=== PATIENT | female | born 1985 | race African-American/Black ===

== ENCOUNTER 2019-03-03 17:06 | Emergency (ER) | payer MEDICAID ==
[~2019-03-03] VITALS: Ht 165.1 cm; Wt 72.0 kg
[2019-03-03] MEDS ORDERED: IBUPROFEN 600MG TABLET PO STA (19:47)
[2019-03-03 20:28] VITALS: BP 136/76
== END 2019-03-03 20:35 | disposition home or self-care (01) ==
LOC: ER 17:06
DX: M25.571 Pain in right ankle and joints of right foot (principal); M54.5 Low back pain; F41.9 Anxiety disorder, unspecified; J45.909 Unspecified asthma, uncomplicated; K21.9 Gastro-esophageal reflux disease without esophagitis; Z87.09 Personal history of other diseases of the respiratory system; Z87.440 Personal history of urinary (tract) infections; Z88.0 Allergy status to penicillin; V09.9XXA Pedestrian injured in unspecified transport accident, initial encounter; Y93.89 Activity, other specified; Y92.89 Other specified places as the place of occurrence of the external cause; Y99.8 Other external cause status
CPT/HCPCS: 72100; 73610; 81025; 99283

== ENCOUNTER 2022-09-01 20:44 | Observation (INO) | payer MEDICAID ==
[~2022-09-01] VITALS: Ht 165.1 cm; Wt 122.5 kg
[2022-09-01] MEDS ORDERED: LACTATED RINGERS 1,000 ML IV SCH ×2 (21:00→21:15)
[2022-09-01] MEDS ORDERED: PNV1TABL76 PO (21:08)
[2022-09-01] MEDS ORDERED: ALBUL GT (21:08)
[2022-09-01 21:20] LABS: CLARITY URINE CLEAR (CLEAR); COLOR URINE DARK YELLOW (YELLOW); KETONES URINE TRACE (NEGATIVE); LEUKOCYTE ESTERASE URINE NEGATIVE (NEGATIVE); NITRITE URINE NEGATIVE (NEGATIVE); OCCULT BLOOD URINE NEGATIVE (NEGATIVE); PROTEIN URINE TRACE (NEGATIVE); SPECIFIC GRAVITY URINE 1.018 (1.005-1.030)
[2022-09-01] MEDS ORDERED: GUAIFENESIN-DM 200MG-20MG/10ML UDC PO NR (22:30)
[2022-09-01] MEDS ORDERED: CEFAZOLIN 2,000 MG in DEXT 5% WATER 100 ML IV NR (22:30)
[2022-09-01] MEDS ORDERED: DIPHENHYDRAMINE 50MG/ML VIAL IV NR (22:30)
[2022-09-01] MEDS ORDERED: TERBUTALINE SULFATE 1MG/ML VIAL SUBCUT NR (23:12)
[2022-09-02] MEDS ORDERED: ONDANSETRON HCL 4MG/2ML INJ IM NR (01:00)
[2022-09-02] MEDS ORDERED: ONDANSETRON HCL 4MG/2ML INJ IV PRN (05:45)
== END 2022-09-02 11:45 | disposition home or self-care (01) ==
LOC: 8 EST LDRP 20:44
PROVIDERS: ADMIT Obstetrics & Gynecology; ATTEND Obstetrics & Gynecology
DX: O62.9 Abnormality of forces of labor, unspecified (principal); Z20.822 Contact with and (suspected) exposure to COVID-19; Z3A.36 36 weeks gestation of pregnancy
CPT/HCPCS: 59025; 76805; 76818; 81003; 87426; 96361; 96365; 96372; G0378; J0690; J2405; J3105; J7060; J7120; 96360; 99281; J1200; G0379

== ENCOUNTER 2023-07-06 16:15 | Emergency (ER) | payer MEDICAID ==
[~2023-07-06] VITALS: Ht 167.6 cm; Wt 75.0 kg
[~2023-07-06 16:15] MED LIST: ACET-2708 MT; ALBU2SYR23 GT; PNV1TABL76 PO
[2023-07-06 16:25] VITALS: BP 146/72; PULSE 78; RESP 16; TEMP 98.4; O2SAT 98
[2023-07-06 22:51] LABS: BASOPHILS % 0.4 % (0.0-2.0); HEMATOCRIT. 37.8 % (36.0-48.0); HEMOGLOBIN. 12.9 g/dL (12.0-16.0); LYMPHOCYTES % 28.3 % (20.0-50.0); MEAN CORPUSCULAR HGB CONC 34.2 g/dL (31.0-37.0); MEAN CORPUSCULAR VOLUME 84.8 fL (81.0-99.0); MONOCYTES % 4.3 % (2.0-8.0); PLATELET 222 x1000/uL (130-400); RED BLOOD CELL COUNT 4.46 mill/uL (4.2-5.4); RED CELL DISTRIBUTION WIDTH 13.9 % (11.6-14.6); WHITE BLOOD COUNT 8.8 x1000/uL (4.5-11.0)
[2023-07-06 22:59] LABS: CALCIUM 9.2 mg/dL (8.5-10.1); CHLORIDE 107 mEq/L (98-107); INDEX HEMOLYSI 1 (1-3); INDEX ICTERIC 1 (1-4); INDEX LIPEMIC 1 (1-3); POTASSIUM 3.5 mEq/L (3.5-5.1); SODIUM 140 mEq/L (136-145)
[2023-07-06 23:06] LABS: ALANINE AMINOTRANSFERASE 38 IU/L (13-61); ALBUMIN 3.9 g/dL (3.4-5.0); ASPARTATE AMINOTRANSFERASE 22 IU/L (15-37); BILIRUBIN TOTAL 0.6 mg/dL (0.1-1.0); CARBON DIOXIDE 29 mEq/L (21-32); CREATININE 0.7 mg/dL (0.6-1.3); GLUCOSE 83 mg/dL (70-105); PROTEIN TOTAL 8.8 g/dL (6.0-8.3); UREA NITROGEN BLOOD 11 mg/dL (7-21)
[2023-07-06 23:22] LABS: HCG SCREEN NEGATIVE
[2023-07-06] MEDS ORDERED: MAGNESIUM/ALUMINUM HYDROXIDE/SIMETHICONE 30ML UDC PO ONE (23:45)
[2023-07-06] MEDS ORDERED: FAMO-135 MT (23:53)
[2023-07-06] MEDS ORDERED: GUAI-741 MT (23:53)
[2023-07-07] MEDS ORDERED: MAGNESIUM/ALUMINUM HYDROXIDE/SIMETHICONE 30ML UDC PO NR (00:15)
== END 2023-07-07 04:21 | disposition home or self-care (01) ==
LOC: ER 16:15
DX: J06.9 Acute upper respiratory infection, unspecified (principal); R10.13 Epigastric pain; F41.9 Anxiety disorder, unspecified; J45.909 Unspecified asthma, uncomplicated; D57.1 Sickle-cell disease without crisis; Z88.0 Allergy status to penicillin; Z91.040 Latex allergy status; Z91.018 Allergy to other foods
CPT/HCPCS: 36415; 71045; 80053; 84703; 85025; 99284

== ENCOUNTER 2023-11-28 13:58 | Emergency (ER) | payer MEDICAID ==
[~2023-11-28] VITALS: Ht 167.6 cm; Wt 74.0 kg
[~2023-11-28 13:58] MED LIST changes: +FAMO-135 MT; +GUAI-741 MT
[2023-11-28 14:08] VITALS: O2SAT 98
[2023-11-28 15:17] LABS: BASOPHILS % 0.3 % (0.0-2.0); HEMATOCRIT. 35.2 % (36.0-48.0); HEMOGLOBIN. 11.9 g/dL (12.0-16.0); LYMPHOCYTES % 26.4 % (20.0-50.0); MEAN CORPUSCULAR HGB CONC 33.7 g/dL (31.0-37.0); MEAN CORPUSCULAR VOLUME 85.9 fL (81.0-99.0); MEAN PLATELET VOLUME 10.1 fl (7.4-10.4); MONOCYTES % 5.2 % (2.0-8.0); NEUTROPHILS % 67.1 % (40.0-76.0); PLATELET 194 x1000/uL (130-400); RED BLOOD CELL COUNT 4.09 mill/uL (4.2-5.4); RED CELL DISTRIBUTION WIDTH 13.2 % (11.6-14.6); WHITE BLOOD COUNT 8.4 x1000/uL (4.5-11.0)
[2023-11-28 15:27] LABS: HCG SCREEN NEGATIVE
[2023-11-28 15:29] LABS: ALANINE AMINOTRANSFERASE 52 IU/L (10-49); ALBUMIN 4.4 g/dL (3.2-4.8); ASPARTATE AMINOTRANSFERASE 36 IU/L (<34); BILIRUBIN TOTAL 0.7 mg/dL (0.1-1.0); CALCIUM 9.1 mg/dL (8.7-10.4); CARBON DIOXIDE 28 mEq/L (21-32); CHLORIDE 106 mEq/L (98-107); CREATININE 0.6 mg/dL (0.6-1.0); GLUCOSE 79 mg/dL (70-105); POTASSIUM 3.9 mEq/L (3.5-5.1); PROTEIN TOTAL 7.9 g/dL (6.0-8.3); SODIUM 139 mEq/L (136-145); UREA NITROGEN BLOOD 11 mg/dL (9-23)
[2023-11-28 16:11] LABS: CLARITY URINE CLEAR (CLEAR); COLOR URINE YELLOW (YELLOW); GLUCOSE URINE NEGATIVE (NEGATIVE); KETONES URINE NEGATIVE (NEGATIVE); LEUKOCYTE ESTERASE URINE NEGATIVE (NEGATIVE); NITRITE URINE NEGATIVE (NEGATIVE); OCCULT BLOOD URINE NEGATIVE (NEGATIVE); PROTEIN URINE NEGATIVE (NEGATIVE)
[2023-11-28] MEDS: METOCLOPRAMIDE HCL 10MG/2ML VIAL IM ONE (17:31)
[2023-11-28 17:42] VITALS: BP 152/69; PULSE 89; RESP 18; TEMP 98.1
== END 2023-11-28 17:43 | disposition home or self-care (01) ==
LOC: ER 13:58
DX: R10.30 Lower abdominal pain, unspecified (principal); R11.2 Nausea with vomiting, unspecified; J45.909 Unspecified asthma, uncomplicated; Z88.0 Allergy status to penicillin; Z91.018 Allergy to other foods; Z91.040 Latex allergy status
CPT/HCPCS: 99283; 80053; 81003; 81025; 84703; 83690; 85025; 36415; 96372; J2765